=== PATIENT | male | born 1960 ===

== ENCOUNTER 2019-07-07 05:05 | Day surgery (SDC) | payer OTHER ==
[2019-07-07] MEDS ORDERED: CARAFATE1 GM PO (07:46)
[2019-07-07] MEDS ORDERED: PEPCID AC20 MG PO (07:46)
== END 2019-07-07 10:50 | disposition home or self-care (01) ==
LOC: AMB-ENDOS 05:05 → ADM 13:15
DX: K29.50 Unspecified chronic gastritis without bleeding (principal); K44.9 Diaphragmatic hernia without obstruction or gangrene; K31.89 Other diseases of stomach and duodenum